=== PATIENT | male | born 1950 | race Caucasian/White ===

== ENCOUNTER 2016-07-01 05:44 | Inpatient (IN) | payer BC ==
[~2016-07-01] VITALS: Ht 180.3 cm; Wt 96.1 kg
[~2016-07-01 05:44] MED LIST: BENICAR20 MG PO; Benicar PO; COZAAR100 MG PO; Feosol PO; GLUCOPHAGE500 MG PO; GLUCOTROL XL10 MG PO; Glucophage PO; IRON325 MG PO; Lovenox SC; NORVASC5 MG PO; Norvasc PO; OxyCONTIN PO; PRAVACHOL20 MG PO; PROTONIX40 MG PO; Percocet 5/325,Endoc PO; Senokot S,Pericolace PO; celeBREX PO
[2016-07-01 06:01] VITALS: BP 157/78
[2016-07-01 07:09] LABS: POINT-OF-CARE METER ID UU14174212
[2016-07-01 10:08] LABS: HEMATOCRIT 38.5 % (38.0-50.0); MCH 28.8 PG (29.0-34.0); MCHC 33.2 G/DL (30.0-36.0); MCV 86.5 FL (86-99); PLATELET COUNT 185 K/uL (156-360); RBC DIS.WIDTH-CV 11.8 % (11.8-14.6); RBC DIS.WIDTH-SD 37.8 % (39-53); RED BLOOD COUNT 4.45 M/uL (4.00-5.50); WHITE BLOOD COUNT 7.4 K/uL (4.1-10.2)
[2016-07-01 10:20] VITALS: BP 147/70
[2016-07-01 11:15] LABS: POINT-OF-CARE METER ID UU13113712
[2016-07-01 15:38] VITALS: BP 118/65
[2016-07-01 16:37] LABS: POINT-OF-CARE METER ID UU13113712
[2016-07-01 19:50] VITALS: BP 143/69
[2016-07-01 22:13] LABS: POINT-OF-CARE METER ID UU13113712
[2016-07-01 23:42] VITALS: BP 137/73
[2016-07-02 03:43] VITALS: BP 135/72
[2016-07-02 05:51] LABS: HEMATOCRIT 36.8 % (38.0-50.0)
[2016-07-02 06:20] LABS: ANION GAP 10 MEQ/L (2-14); CHLORIDE 98 MEQ/L (99-109); GFR ESTIMATE (CALCULATED) > 59 mL/min/; GLUCOSE 266 mg/dL (70-99); POTASSIUM 4.3 MEQ/L (3.7-5.4); SAMPLE HEMOLYSIS CHECK 0; SAMPLE ICTERIC CHECK 0; SAMPLE LIPEMIA CHECK 0; SODIUM 135 MEQ/L (136-147); UREA NITROGEN (BUN) 23 mg/dL (9-23)
[2016-07-02 07:54] VITALS: BP 149/70
[2016-07-02 11:40] LABS: POINT-OF-CARE METER ID UU13113712
[2016-07-02 11:59] VITALS: BP 131/76
[2016-07-02 15:47] VITALS: BP 133/72
[2016-07-02 16:37] LABS: POINT-OF-CARE METER ID UU13113712
[2016-07-02 19:24] VITALS: BP 111/70
[2016-07-02 21:17] LABS: POINT-OF-CARE METER ID UU13113712
[2016-07-02 23:59] VITALS: BP 123/71
[2016-07-03] VITALS (7 sets, daily range): BP systolic 115–132; BP diastolic 58–68
[2016-07-03 05:08] LABS: CHLORIDE 99 mEq/L (99-109); HEMATOCRIT 31.9 % (38.0-50.0); SODIUM 133 mEq/L (136-147)
[2016-07-03 05:10] LABS: GLUCOSE 294 mg/dL (70-99)
[2016-07-03 05:11] LABS: ANION GAP 8 MEQ/L (2-14)
[2016-07-03 05:14] LABS: GFR ESTIMATE (CALCULATED) 41 mL/min/
[2016-07-03 05:15] LABS: UREA NITROGEN (BUN) 34 mg/dL (9-23)
[2016-07-03 07:56] LABS: POINT-OF-CARE METER ID UU13113712
[2016-07-03] MEDS ORDERED: LOVENOX40 MG/0.4 SC (09:24)
[2016-07-03] MEDS ORDERED: SENNA PLUS TAB1 EACH PO (09:24)
[2016-07-03] MEDS ORDERED: ENDOCET 5-3251 EACH PO (09:24)
[2016-07-03] MEDS ORDERED: OXYCONTIN10 MG PO (09:24)
[2016-07-03 10:06] LABS: ALKALINE PHOSPHATASE 51 IU/L (3-129); ANION GAP 8 MEQ/L (2-14); CHLORIDE 98 MEQ/L (99-109); GFR ESTIMATE (CALCULATED) 41 mL/min/; GLUCOSE 306 mg/dL (70-99); POTASSIUM 4.4 MEQ/L (3.7-5.4); SAMPLE HEMOLYSIS CHECK 0; SAMPLE ICTERIC CHECK 0; SAMPLE LIPEMIA CHECK 0; SODIUM 132 MEQ/L (136-147); UREA NITROGEN (BUN) 37 mg/dL (9-23)
[2016-07-03 11:38] LABS: POINT-OF-CARE METER ID UU13113712
[2016-07-03 16:30] LABS: POINT-OF-CARE METER ID UU13113712
[2016-07-03 17:26] LABS: ADD MIUA? YES; BILIRUBIN SMALL; BLOOD MODERATE; COLOR DK YELLOW ((YELLOW)); GLUCOSE (STRIP) 500; KETONES NEGATIVE; LEUKOCYTES NEGATIVE; NITRITE NEGATIVE; PH, URINE 5.5 (5-8); PROTEIN (STRIP) 30; SPECIFIC GRAVITY 1.026 (1.000-1.030); UROBILINOGEN 0.2 MG/DL (0.2-1.0)
[2016-07-03 18:17] LABS: RED BLOOD CELLS NONE SEEN /HPF (0-5)
[2016-07-03 18:18] LABS: BACTERIA RARE; CASTS PRESENT /LPF; CRYSTALS NONE SEEN; EPITHELIAL CELLS NONE SEEN; HYALINE CASTS 0-5 /LPF; MUCUS NONE SEEN; WHITE BLOOD CELLS RARE /HPF (0-5)
[2016-07-03 19:17] LABS: UR CREATININE CONCENTRATION 268.3 MG/DL
[2016-07-03 21:32] LABS: POINT-OF-CARE METER ID UU13113712
[2016-07-04 04:05] VITALS: BP 112/60
[2016-07-04 06:41] LABS: ANION GAP 8 MEQ/L (2-14); CHLORIDE 99 MEQ/L (99-109); GFR ESTIMATE (CALCULATED) 50 mL/min/; GLUCOSE 256 mg/dL (70-99); POTASSIUM 4.1 MEQ/L (3.7-5.4); SAMPLE HEMOLYSIS CHECK 0; SAMPLE ICTERIC CHECK 0; SAMPLE LIPEMIA CHECK 0; SODIUM 133 MEQ/L (136-147); UREA NITROGEN (BUN) 41 mg/dL (9-23); URIC ACID 5.2 mg/dL (3.1-9.2)
[2016-07-04 06:42] LABS: EOSINOPHIL (%) 0 % (0-5); HEMATOCRIT 30.6 % (38.0-50.0); IMMATURE GRANULOCYTE (%) 0.2 % (0.0-0.7); LYMPHOCYTE COUNT 0.6 K/uL (1.0-2.8); MCH 28.5 PG (29.0-34.0); MCV 86.4 FL (86-99); MEAN PLAT.VOLUME 10.1 uM^3 (9.0-12.4); MONOCYTE COUNT 0.9 K/uL (0-0.8); NEUTROPHIL (%) 86.6 % (45-76); NEUTROPHIL COUNT 9.8 K/uL (1.8-6.4); PLATELET COUNT 179 K/uL (156-360); RBC DIS.WIDTH-SD 38.1 % (39-53)
[2016-07-04 06:45] LABS: RED BLOOD COUNT 3.54 M/uL (4.00-5.50); WHITE BLOOD COUNT 11.4 K/uL (4.1-10.2)
[2016-07-04 07:50] LABS: POINT-OF-CARE METER ID UU13113712
[2016-07-04 08:04] VITALS: BP 126/64
[2016-07-04 10:30] VITALS: BP 118/60
== END 2016-07-04 10:34 | DRG 470 ==
LOC: 3WEST 05:44 → 2SOUTH 05:44 → SDC 09:06 → 2SOUTH 09:18 → 3WEST 10:04 → EDSTATUS 11:44 → 2SOUTH 11:45 → 3WEST 07-02 06:48
PROVIDERS: Internal Medicine Nephrology; Nurse Practitioner Family; Orthopaedic Surgery; Physician Assistant
PROC: 0SRD0J9 Replacement of Left Knee Joint with Synthetic Substitute, Cemented, Open Approach (ICD-10-PCS; principal; 2016-07-01)
DX: M17.12 Unilateral primary osteoarthritis, left knee (principal); N17.9 Acute kidney failure, unspecified; E86.0 Dehydration; T38.3X5A Adverse effect of insulin and oral hypoglycemic [antidiabetic] drugs, initial encounter; T46.5X5A Adverse effect of other antihypertensive drugs, initial encounter; K59.03 Drug induced constipation; I12.9 Hypertensive chronic kidney disease with stage 1 through stage 4 chronic kidney disease, or unspecified chronic kidney disease; N18.3 Chronic kidney disease, stage 3 (moderate); N28.1 Cyst of kidney, acquired; E11.9 Type 2 diabetes mellitus without complications; K21.9 Gastro-esophageal reflux disease without esophagitis; Z96.651 Presence of right artificial knee joint
CPT/HCPCS: 73560; 76770; 80048; 80053; 81003; 82570; 82948; 83735; 84100; 84156; 84550; 85014; 85018; 85025; 85027; J0690; J1170; J1650; J1815; J2250; J2405; J3010; J7030; J7050